=== PATIENT | female | born 2005 | race Caucasian/White ===

== ENCOUNTER 2024-04-06 19:35 | Emergency (ER) | payer MEDICAID, OTHER ==
[~2024-04-06] VITALS: Ht 162.6 cm; Wt 60.0 kg
[2024-04-06 19:46] VITALS: BP 109/79; PULSE 85; RESP 18; TEMP 97.6; O2SAT 100
[2024-04-06 20:23] LABS: APPEARANCE,URINE TURBID (CLEAR); COLOR,URINE DARK BROWN (YELLOW); GLUCOSE, URINE (UA) NEGATIVE (NEGATIVE); KETONES,URINE NEGATIVE (NEGATIVE); LEUKOCYTE ESTERASE ,URINE LARGE (NEGATIVE); NITRATE,URINE POSITIVE (NEGATIVE); OCCULT BLOOD,URINE LARGE (NEGATIVE); PROTEIN,URINE 300-600,SEE CONFIRM mg/dL (NEGATIVE); SPECIFIC GRAVITIY, URINE 1.032 (1.003-1.030)
[2024-04-06 20:27] LABS: BILIRUBIN,URINE MODERATE (NEGATIVE)
[2024-04-06 20:38] LABS: SQUAMOUS EPITHELIAL CELL,UR Rare /LPF (None Seen); SULFOSALICYLIC ACID,URINE 3+ (Negative); WBC,URINE 51-100 /HPF (0-5)
[2024-04-06 20:39] LABS: BACTERIA,URINE Moderate /HPF (None Seen)
[2024-04-06] MEDS: CEFUROXIME AXETIL 250 MG TABLET PO ONE (22:37)
[2024-04-07] MEDS ORDERED: CEFU250T87 PO (00:34)
== END 2024-04-07 00:38 | disposition left against medical advice (07) ==
LOC: EMS 19:35
DX: N39.0 Urinary tract infection, site not specified (principal); Z87.440 Personal history of urinary (tract) infections
CPT/HCPCS: 81001; 81002; 84703; 87077; 87086; 87186; 99283